=== PATIENT | female | born 1980 | race Two or more races ===

== ENCOUNTER 2017-12-02 10:23 | Day surgery (SDC) | payer OTHER ==
[2017-11-30 15:20] VITALS: BMI 35.9
[2017-12-02 14:12] VITALS: TEMP 98.1
[2017-12-02 15:47] VITALS: BP 132/65; PULSE 80
== END 2017-12-02 16:35 | disposition home or self-care (01) ==
LOC: JASU-SURG 10:23 → EDBD 12:00 → JASU-SURG 16:35
PROVIDERS: ATTEND Podiatrist Foot Surgery
PROC: 0SU Lower Joints, Supplement (ICD-10-PCS; principal; 2017-12-02)
DX: M20.41 Other hammer toe(s) (acquired), right foot (principal)
CPT/HCPCS: 73630-TC-RT-FY; 84703; 94760; 97116-GP

== ENCOUNTER 2018-06-09 09:36 | Day surgery (SDC) | payer OTHER ==
[2018-06-08 13:54] VITALS: BMI 35.5
[2018-06-09] MEDS ORDERED: DEXAMETHASONE SOD PHOSPHATE 4 MG/1 ML VIAL ONE (10:13)
[2018-06-09] MEDS ORDERED: BUPIVACAINE HCL/PF 0.5% (5MG/ML) 10 ML VIAL ONE (10:14)
[2018-06-09] MEDS ORDERED: LIDOCAINE HCL 1%, 10 MG/ML (20ML VIAL) ONE (11:16)
[2018-06-09] MEDS ORDERED: MIDAZOLAM HCL 2 MG/2 ML SINGLE DOSE VIAL ONE ×2 (11:27)
[2018-06-09] MEDS ORDERED: ceFAZolin SODIUM 1 GM VIAL IVPB ONE (11:30)
[2018-06-09] MEDS ORDERED: PROPOFOL 20 ML ONE (11:31)
[2018-06-09] MEDS ORDERED: ceFAZolin SODIUM 1 GM VIAL ONE (11:32)
[2018-06-09] MEDS ORDERED: LIDOCAINE HCL 1%, 10 MG/ML (20ML VIAL) NR ONE (11:34)
[2018-06-09] MEDS ORDERED: BUPIVACAINE HCL/PF 0.5% (5MG/ML) 10 ML VIAL IJ ONE ×2 (11:34→12:06)
[2018-06-09] MEDS ORDERED: DEXAMETHASONE SOD PHOSPHATE 4 MG/1 ML VIAL IVPUSH ONE (12:06)
--- NOTE | 2018-06-09 12:26 | OP ---
Operative Note - Note: Operative Date: 06/09/18 Pre-Operative Diagnosis: Painful left the hammertoe Operation: Arthroplasty left 5th toe proximal phalanx Findings: Hypertrophic head of left 5th toe proximal phalanx Surgeon: Ileana De Luna Anesthesiologist/ALL PURPOSE CLERK: Ashley Melgar MD Anesthesia: MAC Specimens Removed: Bone Estimated Blood Loss (mls): 1 Operative Report Dictated: Yes
[2018-06-09 12:35] VITALS: TEMP 97.7
[2018-06-09 14:11] VITALS: BP 106/59; PULSE 71
--- NOTE | 2018-06-10 10:52 | OP ---
DATE OF OPERATION: 06/09/2018 SURGEON: Ileana DeL una DPM PREOPERATIVE DIAGNOSIS: Hammertoe, left 5th toe. POSTOPERATIVE DIAGNOSIS: Hammertoe, left 5th toe. OPERATIVE PROCEDURE: Arthroplasty of the left 5th toe. PATHOLOGY: Bone. ANESTHESIA: Local with IV sedation. HEMOSTASIS: Pneumatic ankle tourniquet. ESTIMATED BLOOD LOSS: 1 mL. MATERIALS: None. DESCRIPTION OF OPERATIVE PROCEDURE: The patient was brought to the operating room and placed on the operating table in the supine position. A pneumatic ankle tourniquet was then placed on the patients left ankle. Following IV sedation, local anesthesia was obtained utilizing 4 mL of a 1-to-1 mixture of 0.5% Marcaine plain and 1% lidocaine plain. The foot was then scrubbed, prepped, and draped in the usual aseptic manner. An Esmarch bandage was then utilized to exsanguinate the patients left foot, and a tourniquet was inflated. Attention was directed to the 5th digit of the left foot, where a converging 2-cm semielliptical incision was made running dorsal distal medial to proximal lateral of the proximal interphalangeal joint of the digit. The incision was then deepened through the subcutaneous tissues with care to retract all neurovascular structures. The ellipse was removed with sharp and blunt dissection. All bleeders were cauterized and ligated. A transverse tenotomy and capsulotomy was performed through the proximal interphalangeal joint of the 5th digit of the left foot. The head of the proximal phalanx was then freed of its soft tissue attachment. The double-action bone cutter was then used to resect the head of the proximal phalanx, which was then passed from the operating room table. The phalanx was then smoothed of its rough edges with the bone rasp. The wound was then flushed with copious amounts of sterile saline, and the extensor tendon was reapproximated with 4-0 Vicryl. The skin was reapproximated with 4-0 nylon. Upon completion of the procedure, a total of 3 mL of a 1-to-5 mixture of dexamethasone phosphate and 0.5% Marcaine plain was infiltrated around the surgical site. The incision was dressed with Betadine soaked Adaptic and covered with sterile compressive dressings such as 4x4s and Delmy. The tourniquet was then deflated, and immediate hyperemia returned to all digits. The foot was then wrapped with Coban and an SHERI bandage. The patient tolerated the procedure well and was transferred to the ambulatory surgical unit with all vital signs stable and vascular status intact to the feet. Following postoperative monitoring, the patient was discharged and given instructions which were discussed prior to the surgery. GILSON CROWLEY/[id number]
--- NOTE | 2018-06-14 17:08 | PATH ---
Surgical Pathology Report Patient Name: FRANCOIS FAY [facility]. Rec. #: [id number] /Age/Gender: 1980 (Age: 38) / F Account: [id number] Location: [facility] SURGICAL Taken: 06/09/2018 Received: 06/09/2018 Reported: 06/14/2018 Physicians: Ileana De Luna DPM Specimen(s) Received BONE 5TH PROXIMAL PHALANX Clinical History Hammertoe Final Diagnosis BONE, PROXIMAL PHALANX, FIFTH, EXCISION: BONE WITH DEGENERATIVE CHANGES AND FATTY MARROW. FRAGMENTS OF DENSE FIBROCONNECTIVE AND FIBROADIPOSE TISSUE. Electronically Signed Lily De León M.D. Gross Description Received in formalin labeled "bone fifth proximal phalanx," is a 1.0 x 0.8 x 0.5 cm verdin, irregular portion of bone. The specimen is bisected and entirely submitted in one cassette, following decalcification. /06/10/2018 saudi/06/10/2018
== END 2018-06-09 15:56 | disposition home or self-care (01) ==
LOC: JOR 09:36 → JASU-SURG 09:36
PROVIDERS: ATTEND Podiatrist Foot Surgery
PROC: 0SRQ0JZ Replacement of Left Toe Phalangeal Joint with Synthetic Substitute, Open Approach (ICD-10-PCS; principal; 2018-06-09 11:00)
DX: M20.42 Other hammer toe(s) (acquired), left foot (principal)
CPT/HCPCS: 73630-TC-LT; 84703; 88305-TC; 88311-TC; 97116-GP